=== PATIENT | female | born 1980 | race Caucasian/White ===

== ENCOUNTER → 2018-04-26 | Outpatient (CLI) | payer OTHER | END | disposition home or self-care (01) | LOC: SONOGRAMA 09:59 | DX: N84.0 Polyp of corpus uteri (principal) ==

== ENCOUNTER 2018-11-12 10:42 | Outpatient (CLI) | payer OTHER | END 2018-11-12 10:54 | disposition home or self-care (01) | LOC: RAD 501 10:42 | DX: M54.2 Cervicalgia (principal); M54.6 Pain in thoracic spine; M54.5 Low back pain ==

== ENCOUNTER 2023-05-31 13:32 | Outpatient (CLI) | payer OTHER | END 2023-05-31 13:34 | disposition home or self-care (01) | LOC: SONOGRAMA 13:32 | PROVIDERS: ATTEND Obstetrics & Gynecology Maternal & Fetal Medicine | DX: N84.0 Polyp of corpus uteri (principal) ==